=== PATIENT | female | born 1970 | race Caucasian/White ===

== ENCOUNTER 2021-06-06 10:02 | Outpatient (REF) | payer OTHER, SELFPAY ==
--- NOTE | ~2021-06-06 | XR_ITS ---
EXAMINATION: XR KNEES, BILATERAL STANDING XR KNEE, RIGHT CLINICAL INFORMATION: Pain COMPARISON: XR 08/07/2016 TECHNIQUE: Standing image of the knees and 2 detail views of the right knee. FINDINGS: The standing image demonstrates medial joint space loss which appears moderate to marked on the right. More mild to moderate on the left. Joint line osteophytes are seen bilaterally. The lateral joint spaces are fairly well preserved. The 2 views which are detailed of the right knee shows moderate to marked patellofemoral degeneration but the patella does lie within the fossa. No significant joint effusion. XR/XR knee RT 2V IMPRESSION: Moderate to marked degeneration in the right knee as described.
--- NOTE | ~2021-06-06 | XR_ITS ---
EXAMINATION: XR KNEES, BILATERAL STANDING XR KNEE, RIGHT CLINICAL INFORMATION: Pain COMPARISON: XR 08/07/2016 TECHNIQUE: Standing image of the knees and 2 detail views of the right knee. FINDINGS: The standing image demonstrates medial joint space loss which appears moderate to marked on the right. More mild to moderate on the left. Joint line osteophytes are seen bilaterally. The lateral joint spaces are fairly well preserved. The 2 views which are detailed of the right knee shows moderate to marked patellofemoral degeneration but the patella does lie within the fossa. No significant joint effusion. XR/XR knee standing BI IMPRESSION: Moderate to marked degeneration in the right knee as described.
== END 2021-06-06 10:03 | disposition home or self-care (01) ==
LOC: HO.HOSX 10:02
PROVIDERS: Visit Provider Orthopaedic Surgery
DX: M17.11 Unilateral primary osteoarthritis, right knee (principal)
CPT/HCPCS: 20610; 73560; 73565; J1040